=== PATIENT | male | born 1990 | race Caucasian/White ===

== ENCOUNTER 2020-01-17 12:30 | Emergency (ER) | payer OTHER ==
[~2020-01-17] VITALS: Ht 172.7 cm; Wt 117.9 kg
--- NOTE | ~2020-01-17 | PROC ---
[address] [address] PROCEDURE REPORT Name: NICKI MALDONADO JR [id number] Admission: 01/17/20 Attend Phys: Discharge: 01/17/20 Date of : 89 Report #: [id number] THIS REPORT FOR: //name// cc: Hernando Reed MD, Anthony MD ~ THIS REPORT FOR: //name// For GI report, please see the Provation report in [employer] content. By: [id number] Records Staff SONALI /FRANDY
[2020-01-17] MEDS ORDERED: CETIRIZINE HCL5 M1 PO (12:45)
[2020-01-17 13:01] LABS: ABSOLUTE EOSINOPHILS 0.3 thou/uL (0.0-0.7); ABSOLUTE LYMPHOCYTES 2.1 thou/uL (0.8-5.3); ABSOLUTE MONOCYTES 0.3 thou/uL (0.0-1.2); ABSOLUTE NEUTROPHILS 2.5 thou/uL (1.6-8.1); BASOPHILS 0.7 %; EOSINOPHILS 5.1 %; HEMATOCRIT 44.1 % (42.0-52.0); HEMOGLOBIN 15.7 gm/dL (14.0-18.0); LYMPHOCYTES 39.9 %; MCH 30.8 pg (26.0-34.0); MCHC 35.6 g/dL (28.0-37.0); MCV 86.6 fL (80.0-100.0); MONOCYTES 6.6 %; MPV 7.3 fl. (7.2-11.1); NUCLEATED RBCS 0 /100WBC; PLATELET COUNT* 241 thou/uL (150-400); POLYS 47.7 %; RBC 5.09 mil/uL (4.50-6.00); RDW-CV 12.8 % (10.5-14.5); WBC 5.2 thou/uL (4.0-11.0)
[2020-01-17 13:10] LABS: APTT 25.6 Seconds (25.0-31.3); INR 1.1; PROTIME 10.9 Seconds (9.20-11.50)
[2020-01-17 13:22] LABS: CREATININE 1.3 mg/dL (0.6-1.3); POTASSIUM 3.8 mmol/L (3.5-5.1)
[2020-01-17 15:25] VITALS: BP 125/78
[2020-01-17 17:15] LABS: DIRECT BILIRUBIN 0.2 mg/dL (<0.1-0.3); TOTAL BILIRUBIN 0.8 mg/dL (<0.1-1.0); TOTAL PROTEIN 8.1 g/dL (6.4-8.2)
--- NOTE | 2020-01-21 13:08 | PATH ---
[address] [address] PATHOLOGY RPT PROCEDURE Name: NICKI MALDONADO JR [facility] [id number] Admission: 01/17/20 Date of : 89 Discharge: 01/17/20 Report #: [id number] Path Case #: [id number] [facility] Accession Number: [id number] . 01 Material submitted: . PART A: esophagus - ESOPHAGEAL BIOPSY AT 35CM PART B: esophagus - ESOPHAGEAL BIOPSY AT 30CM . 01 Clinical history: . FEELS LIKE FOOD STUCK, FOOD BOLUS . 02 Diagnosis: A. Esophagus "at 35 cm", endoscopic biopsy: - Esophageal squamous mucosa with features of chronic esophagitis. - Negative for intestinal metaplasia, dysplasia, and malignancy. . B. Esophagus "at 30 cm", endoscopic biopsy: - Esophageal squamous mucosa with reactive features and acute and chronic inflammation. - Negative for dysplasia and malignancy. . (JANETH:isidro; 01/20/2020) MBR 01/21/2020 1239 Local . 02 Electronically signed: . Kat Anthony MD, Pathologist NPI- [id number] . 01 Gross description: . A. The specimen is received in formalin, labeled "Nicki Maldonado Jr., esophageal biopsy 35 cm". Received is a segment of pale mckeon soft tissue measuring 0.3 cm in maximum dimensions. The specimen is submitted entirely in cassette A1. . B. The specimen is received in formalin, labeled "Nicki Maldonado Jr., esophageal biopsy 30 cm". Received are two segments of pale mckeon soft tissue ranging in size from 0.2 to 0.5 cm in maximum dimensions. The specimen is submitted entirely in cassette B1. (CAA; 01/19/2020) QAC/QAC 01/19/2020 1232 Local . 02 Pathologist provided ICD-10: Z03.89 . 02 CPT . 956412, 678111 Specimen Comment: A courtesy copy of this report has been sent to [phone], [place] [address] PATHOLOGY RPT PROCEDURE Name: NICKI MALDONADO JR [facility] [id number] Admission: 01/17/20 Date of : 89 Discharge: 01/17/20 Report #: [id number] Path Case #: [id number] Specimen Comment: [id number] Specimen Comment: Report sent to / DR DENSON Performed at: [address] [facility] [address], [place], [place] [id number] MD Adonay Piedra MD Phone: [phone] Performed at: 02 [facility] [place] [address] [facility] [place] , [place], [place] [id number] MD Samir Villeda MD Phone: [phone]
== END 2020-01-17 15:26 | disposition home or self-care (01) ==
LOC: M.ERS 12:30 → M.GI 12:30
PROVIDERS: Internal Medicine Gastroenterology; Nurse Practitioner Family
DX: T17.228A Food in pharynx causing other injury, initial encounter (principal); R11.2 Nausea with vomiting, unspecified; Z20.828 Contact with and (suspected) exposure to other viral communicable diseases; X58.XXXA Exposure to other specified factors, initial encounter; Y93.89 Activity, other specified; Y92.89 Other specified places as the place of occurrence of the external cause; Y99.8 Other external cause status